=== PATIENT | female | born 1940 | race Caucasian/White ===

== ENCOUNTER 2016-06-04 06:31 | Day surgery (SDC) | payer MEDICARE, OTHER ==
[~2016-06-04] VITALS: Ht 167.6 cm; Wt 70.8 kg
[~2016-06-04 06:31] MED LIST: AMLO5TAB2 PO; ASCO10002 PO; ASCO10006 PO; ASPI-482 PO; CALC1CAP8 PO; CEFAZOLIN 2GM PREMIX 50 ML IV PRN; CINN500C PO; FISH1CAP PO; GABA-585 PO; LISI40TA PO; MULT-208 PO; REMIFEMIN PO; SIMV40TA3 PO; [UNRECOGNIZED DRUG - CODE] PO
[2016-06-04] MEDS ORDERED: BUPIVAC MPF-EPI 0.5%-1:200000 30 ML VIAL. ONE (06:37)
[2016-06-04] MEDS ORDERED: FENTANYL PF 100 MCG/2 ML VIAL. IV PRN ×2 (07:00)
[2016-06-04] MEDS ORDERED: PROCHLORPERAZINE 10 MG/2 ML VIAL. IV PRN (07:00)
[2016-06-04] MEDS ORDERED: HYDROMORPHONE 2 MG/ML VIAL. IV PRN (07:00)
[2016-06-04] MEDS ORDERED: LIDOCAINE 1% 1 ML SYRINGE. ID PRN (07:00)
[2016-06-04] MEDS ORDERED: MORPHINE SULFATE 2 MG/ML DISP.SYRIN. IV PRN (07:00)
[2016-06-04] MEDS ORDERED: ONDANSETRON PF 4 MG/2 ML VIAL. IV PRN (07:00)
[2016-06-04] MEDS ORDERED: IV RINGERS,LACTATED 1000ML 1,000 ML IV SCH (07:00)
[2016-06-04] MEDS ORDERED: DESFLURANE 61 TO 120 MINUTES IH ONE (07:37)
[2016-06-04] MEDS ORDERED: GLYCOPYRROLATE 1 MG/5 ML VIAL. ONE (07:38)
[2016-06-04] MEDS ORDERED: ROCURONIUM 50 MG/5 ML VIAL. ONE ×2 (07:38→07:39)
[2016-06-04] MEDS ORDERED: LIDOCAINE 2% 100 MG/5 ML DISP.SYRIN. ONE (07:38)
[2016-06-04] MEDS ORDERED: DEXAMETHASONE SOD PHOS 20 MG/5 ML VIAL. ONE (07:38)
[2016-06-04] MEDS ORDERED: ONDANSETRON PF 4 MG/2 ML VIAL. ONE (07:38)
[2016-06-04] MEDS ORDERED: NEOSTIGMINE METHYLSULFATE 5 MG/5 ML SYRINGE. ONE (07:38)
[2016-06-04] MEDS ORDERED: FENTANYL PF 100 MCG/2 ML VIAL. ONE (07:38)
[2016-06-04] MEDS ORDERED: PROPOFOL 20 ML IV ONE (07:38)
[2016-06-04] MEDS ORDERED: OXYC-323 PO (08:23)
[2016-06-04] MEDS ORDERED: ONDA4TAB7 PO (08:23)
[2016-06-04] MEDS ORDERED: OXYCODONE/APAP 5/325 TABLET. PO ONE ×2 (10:00)
[2016-06-04 10:45] VITALS: BP 146/67
--- NOTE | 2016-06-04 11:21 | PDOC ---
BRIEF OPERATIVE NOTE Pre-Op Diagnosis left spigellian hernia left spigellian hernia repair with mesh gemma schmid ebl 5 ivf 1100 jose well to rr stable. REMA JOSEPH MD Jun 04, 2016 11:21
--- NOTE | 2016-06-05 20:55 | OP ---
DATE OF SURGERY: 06/04/2016 PREOPERATIVE DIAGNOSIS: Left spigelian hernia. POSTOPERATIVE DIAGNOSIS: Left spigelian hernia. PROCEDURE: Left spigelian hernia repair with mesh. SURGEON: Rema Joseph M.D. ANESTHESIA: General. ESTIMATED BLOOD LOSS: 5 mL. IV FLUIDS: 1100 mL. INDICATIONS: The patient is a 75-year-old female with a left spigelian hernia. She is here for repair. FINDINGS: She had a small fascial defect measuring about 1 cm, but in order to expose the fascial defect and clear the preperitoneal space, a field dissection was created that would allow 6.4 cm Bard Ventralex patch be placed in the preperitoneal space. DESCRIPTION OF PROCEDURE: After informed consent was obtained, the patient was taken to the operating room and placed in supine position. After adequate induction of general anesthesia, she was prepped and draped in usual sterile fashion. Skin incision was made over the area of protuberance with a scalpel. This was extended through subcutaneous tissue with cautery and external oblique was intact. It was divided with cautery, which revealed a small hernia defect through the internal oblique and transverse with musculature just the edge of the rectus muscle. This was elevated. The preperitoneal space was developed. In doing so, this layer was very thin and the hernia defect enlarged, so that a 6.4 cm Bard Ventralex patch could be placed in the preperitoneal space and then it was sutured to the internal oblique and transverse musculature in 4 areas with U sutures using 0 Prolene sutures. The fascia was then closed over the mesh and then external oblique was then closed over this, both of which with 0 Prolene suture. The wound was injected with local anesthetic, Sandy's fascia was closed with 3-0 Vicryl in a running fashion. Skin was closed with 4-0 Monocryl in subcuticular fashion. Sterile dressings were placed. She tolerated the procedure well. There were no apparent complications. She was then transferred in stable condition to recovery room. REMA JOSEPH MD DR: SHAN/celeste JOB#: [id number] / [id number] NEELAM Yost MD
== END 2016-06-04 11:00 | disposition home or self-care (01) ==
LOC: SURG 06:31
PROVIDERS: ATTEND Surgery
DX: K43.9 Ventral hernia without obstruction or gangrene (principal); E78.00 Pure hypercholesterolemia, unspecified; I10 Essential (primary) hypertension; M19.90 Unspecified osteoarthritis, unspecified site; Z87.39 Personal history of other diseases of the musculoskeletal system and connective tissue; Z98.41 Cataract extraction status, right eye; Z98.42 Cataract extraction status, left eye
CPT/HCPCS: 49590; A4215; J0690; J1100; J2405; J2704; J2710; J3010; J3490; J7120

== ENCOUNTER → 2020-01-02 | Outpatient (CLI) | payer MEDICARE, OTHER ==
[~2020-01-02] MED LIST changes: +ALBU2.5V8 IH; +AMLO-186 PO; -AMLO5TAB2 PO; +APIX5TAB PO; +ASCO100019 PO; -ASCO10002 PO; +ASCO100020 PO; -ASCO10006 PO; -CEFAZOLIN 2GM PREMIX 50 ML IV PRN; -CINN500C PO; +CINN500C2 PO; +DILT180C2 PO; +FLEC100T PO; +LISI-130 PO; -LISI40TA PO; +METH500C3 PO; +ONDA4TAB7 PO; +OXYB5TAB10 PO; +OXYC1TAB15 PO; +SIMV40TA18 PO; -SIMV40TA3 PO; +[UNRECOGNIZED DRUG - CODE] PO; -[UNRECOGNIZED DRUG - CODE] PO
--- NOTE | 2020-01-02 11:20 | PDOC1 ---
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 with some increased pain in her back and right leg at that t yessenia is been on and off over the years but getting worse over the past year or so patient reports is in the low back rating the right lower extremity posterior lateral thigh lateral anterior thigh anteromedial thigh medial lower leg to the ankle but not into the foot patient reports it changes during the day worse with walking standing changing positions and radiating pain describes as aching and throbbing in the back shooting and burning in the leg as well patient reports she is doing physical therapy doing exercise bike riding also sees chiropractic once a week which she feels is helpful but not relieving the pain completely patient reports it wakes her from sleep release 3 times a night now over the past few months does not affect her bowel bladder control or her ability to walk does not use any assistive devices. Patient also taking Tylenol which does help mildly to decrease the pain patient rates her disability rating is a 5 from a scale of 0-10 at its worse with recreational activities only. Patient did have MRI scan lumbar spine showing multilevel degenerative changes throughout the lumbar levels increased from 2014 comparison with no high-grade canal stenosis but foraminal narrowing most notably at L4-5 with disc bulge and endplate spurring along with facet hypertrophy moderate to severe foraminal narrowing greater on the left. Patient reports no loss of motor function no bowel or bladder incontinence or other complaints. PAST MEDICAL HISTORY: PMH: Hypertension, atrial fibrillation, arthritis, weather induced asthma PREVIOUS SURGERIES: Past Surgical Hx: Cyst and right eye surgery, bilateral cataract extractions, appendectomyD&C, total knee arthroplasty on the right, right fourth toe surgery, bilateral cataract extraction, appendectomy CURRENT MEDICATIONS: Current Meds: Active Scripts Medications Dose Route/Sig Max Daily Dose Days Date Category Proair Hfa Inhaler (Albuterol Sulfate) 8.5 Gm Hfa.aer.ad 2 Puff IH PRN Q4-6HRS PRN 21 01/02/20 Reported Msm (Methylsulfonylmethane) 500 Mg Capsule Unknown Dose PO DAILY 01/02/20 Reported Cardizem Cd (Diltiazem Hcl) 180 Mg Cap.er.24h 120 Mg PO DAILY 01/02/20 Reported Oxybutynin Chloride 5 Mg Tablet 5 Mg PO BID 01/02/20 Reported Eliquis (Apixaban) 5 Mg Tablet 5 Mg PO BID 01/02/20 Reported Flecainide Acetate 100 Mg Tablet 50 Mg PO BID 01/02/20 Reported Simvastatin 40 Mg Tablet 1 Tab PO QHS 02/21/14 Reported Lisinopril 40 Mg Tablet 1 Tab PO DAILY 02/21/14 Reported Fish Oil 1,200 Mg Fish Oil (Fish Oil/Dha/Epa) 1 Each Capsule 1 Each PO BID 02/21/14 Reported Multi-Day Vitamins (Multivitamin) 1 Each Tablet 1 Tab PO DAILY 02/21/14 Reported Vitamin C (Ascorbic Acid) 1,000 Mg Tablet 1,000 Mg PO 02/21/14 Reported Calcium 600+D Softgel (Calcium Carbonate/Vitamin D3) 1 Each Capsule 1 Each PO BID 02/21/14 Reported ALLERGIES; Allergies: Coded Allergies: Sulfa (Sulfonamide Antibiotics) (Verified Allergy, Intermediate, blood pressure increases, 06/04/16) erythromycin base (Verified Allergy, Intermediate, makes her sleepy, 06/04/16) FAMILY HISTORY: Family Hx: Cancer, cardiac disease SOCIAL HISTORY: Social Hx: Patient does not smoke no drug alcohol does not use any illegal illicit recreational drugs is lives with her spouse lives locally in [facility] and is a retired nurse REVIEW OF SYSTEMS: ROS: Positive for those items mentioned in history of present illness, all systems are reviewed, otherwise negative, is complete full and well-documented on patient's chart PHYSICAL EXAM: VS: Blood pressure is 138/67 pulse 63 temperature 97.9 F respirations 18 height is 5 foot 6 inches weight is 150 pounds PE: PHYSICAL EXAMINATION: GENERAL: The patient is awake, alert, oriented, appropriate, very pleasant demeanor HEENT: Shows normocephalic, atraumatic. Extraocular movements are intact and symmetrical. Oral cavity: Mucous membranes moist and pink. Dentition is intact. NECK: Shows anterior throat supple without palpable lymphadenopathy noted. Swallow reflex symmetrical. CHEST: Shows normal on inspection. Breath sounds are clear bilaterally, no rales rhonchi or wheezes auscultated. HEART: Shows S1, S2 clear. No murmurs auscultated. ABDOMEN: Soft, nontender, nondistended, obese. No palpable organomegaly is noted. No rebound or guarding demonstrated. BACK: Shows spine grossly in the midline. Normal-appearing cervical lordotic curvature. There is slightly increased thoracic kyphosis, some minor flattening of the lumbar lordotic curvature. Lumbar paraspinous muscles show symmetrical on inspection, on palpation shows some moderate tenderness diffusely throughout the upper, middle and lower distribution of the paraspinous muscles bilaterally without specific trigger points, without radiation of pain. The patient has good rotational motion of the lumbar spine, both laterally as well as extension and flexion without significant difficulty. No tenderness over the spinous processes, sacrum or sacroiliac regions. EXTREMITIES: Lower extremities show deep tendon reflexes 2+ in the patellar and tendo calcaneus tendons. Motor exam is 5 on a scale of 5 with right dorsiflexion, extension, quadriceps and hamstring flexion and 5/5 on the left. Peripheral pulses are 1+ posterior tibial. No peripheral edema is noted bilaterally. Lower extremities are warm and dry to touch, equal in color and appearance. Straight leg raise noted to be negative bilaterally. Gaenslen's and Luis M's maneuvers are negative as well. The patient is able to stand, stand on her toes that difficulty or loss of balance walks with a normal- appearing gait does not appear to favor the right or left lower extremity significantly not use any assistive devices such as canes or walkers to ambulate.. SKIN: Shows warm and dry, good turgor. No edema. No sores, rashes or bruising throughout. IMPRESSION: Impression: 79-year-old female with long history low back and right lower extremity pain worse over the past year in a radicular fashion Lumbar MRI scan as noted Hypertension Atrial fibrillation with anticoagulation therapy Arthritis Plan: Options were discussed with the patient including conservative medical management, physical therapies, interventional techniques and she would like to pursue interventional techniques. We discussed a lumbar epidural steroid injection using descriptions as well as anatomical models to describe the procedure. We will check with her grade setter for clearance to hold her Eliquis for 48 hours prior to potential injection, if deemed safe and appropriate will have patient return and plan on lumbar epidural steroid injection at that time. In the meantime patient will continue with stretching strength exercises walking and bicycle activity as current. MARIA ISABEL PHILLIPS MD Jan 02, 2020 11:20
== END ==
LOC: PNCL 09:43
PROVIDERS: ATTEND Anesthesiology
DX: M54.5 Low back pain (principal); I48.91 Unspecified atrial fibrillation; I10 Essential (primary) hypertension; M19.90 Unspecified osteoarthritis, unspecified site; J45.909 Unspecified asthma, uncomplicated; E78.00 Pure hypercholesterolemia, unspecified; Z79.01 Long term (current) use of anticoagulants; Z98.890 Other specified postprocedural states; Z79.899 Other long term (current) drug therapy; Z88.2 Allergy status to sulfonamides; Z88.8 Allergy status to other drugs, medicaments and biological substances
CPT/HCPCS: G0463

== ENCOUNTER → 2020-01-08 | Outpatient (CLI) | payer MEDICARE, OTHER ==
[~2020-01-08] MED LIST changes: +IOHEXOL 180 MG/ML 10 ML VIAL. ONE; +methylPREDNISolone ACETATE 40 MG/ML VIAL. ONE; +methylPREDNISolone ACETATE 80 MG/ML VIAL. ONE
--- NOTE | 2020-01-08 11:13 | PDOC ---
Progress Note - Pain Clinic Date of Service: DOS: DATE: 01/08/20 TIME: 11:10 Diagnosis: Dx: Lumbar radiculopathy with lumbar degenerative disc disease History or Present Illness: HPI: 79-year-old female returns follow-up status post initial evaluation and clearance to hold her Eliquis she has been off of this now for 3 days and returns reporting still significant pain in the low back and right lower extremity posterior gluteus posterior lateral thigh lateral anterior thigh medial thigh medial lower leg on the right side patient reports is a 7 on scale 10 is worse over the past week 7 on average 4 at its least, and is a 4 today. Patient reports no new motor or sensory deficits describes the pain as aggravating worse with sitting stabbing and tight in the low back and shooting into the right lower extremity. Patient reports no new changes no new bowel or bladder incontinence or other complaints. Physical Exam: VS: Blood pressure is 132/75 pulse 72 respirations 18 temperature 97.7 F height is 5 feet 6 inches weight is 155 pounds PE: PHYSICAL EXAMINATION: GENERAL: The patient is awake, alert, oriented, appropriate, very pleasant demeanor HEENT: Shows normocephalic, atraumatic. Extraocular movements are intact and symmetrical. NECK: Shows anterior throat supple without palpable lymphadenopathy noted. CHEST: Shows normal on inspection. Breath sounds are clear bilaterally. HEART: Shows S1, S2 clear. No murmurs auscultated. ABDOMEN: Soft, nontender, nondistended. No palpable organomegaly is noted. No rebound or guarding demonstrated. BACK: Shows spine grossly in the midline. Normal-appearing cervical lordotic curvature. There is slightly increased thoracic kyphosis, some minor flattening of the lumbar lordotic curvature. Lumbar paraspinous muscles show symmetrical on inspection, on palpation shows some moderate tenderness diffusely throughout the upper, middle and lower distribution of the paraspinous muscles bilaterally, but without specific trigger points, without radiation of pain. The patient has good rotational motion of the lumbar spine, both laterally as well as extension and flexion without significant difficulty. No tenderness over the spinous processes, sacrum or sacroiliac regions. EXTREMITIES: Lower extremities show deep tendon reflexes 2+ in the patellar and tendo calcaneus tendons. Motor exam is 5 on a scale of 5 with right dorsiflexion, extension, quadriceps and hamstring flexion and 5/5 on the left. Peripheral pulses are 1+ posterior tibial. No peripheral edema is noted bilaterally. Lower extremities are warm and dry to touch, equal in color and appearance. SKIN: Shows warm and dry, good turgor. No edema. No sores, rashes or bruising throughout. Procedure: Procedure: Options were discussed with the patient. Patient's old chart was reviewed as her current medication regimen updated current review of systems updated today as well. We will proceed with a lumbar epidural steroid injection today with fluoroscopic guidance. Risks were discussed including but not limited to: Bleeding, infection, possibility of epidural hematoma and subsequent neurological compromise, dural puncture, headaches, spinal cord and/or nerve damage, side effects of steroid medication, and poor results regarding pain control. Patient understands wished to proceed. Patient will return to the clinic in approximately 2 weeks for follow-up was counseled as to return appointment activity level and side effects to be aware of. Medication Injected: Med Injected: Procedure is lumbar epidural steroid injection under local anesthetic using ster ile prep and drape at the L4-5 level using C-arm fluoroscopic guidance in both AP and lateral views medications injected is 120 mg Depo-Medrol + 10 mL preservative-free normal saline and 2 mL contrast- condition at discharge is stable patient tolerated procedure well had no complications. Condition at Discharge: Condition at Discharge: Condition at discharge stable patient tolerated the procedure well had no complications. MARIA ISABEL PHILLIPS MD Jan 08, 2020 11:13
== END ==
LOC: PNCL 10:45
PROVIDERS: ATTEND Anesthesiology
DX: M51.16 Intervertebral disc disorders with radiculopathy, lumbar region (principal); I10 Essential (primary) hypertension; E78.00 Pure hypercholesterolemia, unspecified; Z88.2 Allergy status to sulfonamides; Z79.899 Other long term (current) drug therapy; Z88.8 Allergy status to other drugs, medicaments and biological substances
CPT/HCPCS: 62323; J1030; J1040; Q9965

== ENCOUNTER → 2020-02-12 | Outpatient (CLI) | payer MEDICARE, OTHER ==
--- NOTE | 2020-02-12 11:47 | PDOC ---
Progress Note - Pain Clinic Date of Service: DOS: DATE: 02/12/20 TIME: 11:40 Diagnosis: Dx: Lumbar radiculopathy with lumbar degenerative disc disease History or Present Illness: HPI: 79-year-old female returns follow-up status post lumbar epidurals or injection x1. Patient reports minimal decrease in pain for few days it was better but after that base essentially back to baseline in the low back right lower extremity patient reports pain rating posterior gluteus posterior lateral thigh lateral anterior thigh anteromedial thigh and into the right lower extremity in the calf as well with a dull aching quality. Patient scribes as dull and tight in the back rated as a 7 on scale 10 at all times average worst and least over the past week and is a 7 today. Patient reports better with sitting or laying down generally does not awaken her from sleep at night patient reports no new motor or sensory deficits no new bowel or bladder incontinence or other complaints. Physical Exam: VS: Blood pressure is 156/81 pulse 56 respirations 16 temperature 90.0 F weight is 159 pounds PE: PHYSICAL EXAMINATION: GENERAL: The patient is awake, alert, oriented, appropriate, very pleasant demeanor HEENT: Shows normocephalic, atraumatic. Extraocular movements are intact and symmetrical. NECK: Shows anterior throat supple without palpable lymphadenopathy noted. Swal low reflex symmetrical. CHEST: Shows normal on inspection. Breath sounds are clear bilaterally. HEART: Shows S1, S2 clear. No murmurs auscultated. ABDOMEN: Soft, nontender, nondistended. No palpable organomegaly is noted. BACK: Shows spine grossly in the midline. Normal-appearing cervical lordotic curvature. There is slightly increased thoracic kyphosis, some minor flattening of the lumbar lordotic curvature. Lumbar paraspinous muscles show symmetrical on inspection, on palpation shows some moderate tenderness diffusely throughout the upper, middle and lower distribution of the paraspinous muscles without specific trigger points, without radiation of pain. The patient has good rotational motion of the lumbar spine, both laterally as well as extension and flexion without significant difficulty. No tenderness over the spinous processes, sacrum or sacroiliac regions. EXTREMITIES: Lower extremities show deep tendon reflexes 2+ in the patellar and tendo calcaneus tendons. Motor exam is 5 on a scale of 5 with right dorsiflexion, extension, quadriceps and hamstring flexion and 5/5 on the left. Peripheral pulses are 1+ posterior tibial. No peripheral edema is noted bilaterally. Lower extremities are warm and dry to touch, equal in color and appearance. SKIN: Shows warm and dry, good turgor. No edema. No sores, rashes or bruising throughout. Procedure: Procedure: Options were discussed with the patient. Patient chart was reviewed as her current medication regimen updated current review of systems updated today as well. We will proceed with a second in the series lumbar epidural steroid injection today with fluoroscopic guidance. Risks were discussed including but not limited to: Bleeding, infection, possibility of epidural hematoma and subsequent neurological compromise, dural puncture, headaches, spinal cord and/or nerve damage, side effects of steroid medication, and poor results regarding pain control. Patient understands wished to proceed. Patient will return to clinic in approximate 2 weeks for follow-up we will restart Eliquis tomorrow patient was counseled as to return appointment activity level medication regimen and side effects to be aware of. Medication Injected: Med Injected: Procedure is lumbar epidural steroid injection under local anesthetic using sterile prep and drape at the L4-5 level using C-arm fluoroscopic guidance in both AP and lateral views medications injected is 120 mg Depo-Medrol + 10mL preservative-free normal saline and 2 mL contrast- condition at discharge is stable patient tolerated procedure well had no complications. Condition at Discharge: Condition at Discharge: Condition at discharge is stable, patient tolerated procedure well and had no complications. MARIA ISABEL PHILLIPS MD Feb 12, 2020 11:47
== END | disposition home or self-care (01) ==
LOC: PNCL 10:32
PROVIDERS: ATTEND Anesthesiology
DX: M51.16 Intervertebral disc disorders with radiculopathy, lumbar region (principal); I10 Essential (primary) hypertension; E78.00 Pure hypercholesterolemia, unspecified; M19.90 Unspecified osteoarthritis, unspecified site; Z88.1 Allergy status to other antibiotic agents; Z88.2 Allergy status to sulfonamides; Z98.890 Other specified postprocedural states; Z79.899 Other long term (current) drug therapy
CPT/HCPCS: 62323; J1030; J1040; Q9965